=== PATIENT | male | born 1955 | race Caucasian/White ===

== ENCOUNTER 2021-06-26 07:30 | Day surgery (SDC) | payer OTHER ==
--- NOTE | 2021-06-23 13:52 | HP ---
DATE OF SURGERY: 06/26/2021 HISTORY OF PRESENT ILLNESS: The patient is a 65 year-old male who presents for colonoscopy. Last colonoscopy was in 2013 and he had a good exam. He denies any GI signs or symptoms now. Denies family history of colon cancer. PAST MEDICAL HISTORY: Diabetes, hypertension, chronic obstructive pulmonary disease, history of pulmonary embolism. PAST SURGICAL HISTORY: Pilonidal cyst excision. Heart cath. Knee replacement. ALLERGIES: NKDA. MEDICATIONS: Metformin, Farxiga, atorvastatin, Fenofibrate, glyburide, lisinopril. FAMILY HISTORY: Diabetes, heart attack, stroke, coronary artery disease. SOCIAL HISTORY: Negative. REVIEW OF SYSTEMS: CONSTITUTIONAL: Denies fever or chills. CHEST: Denies shortness of breath. CVS: Denies chest pain. ABDOMEN: Denies abdominal pain, nausea, vomiting, diarrhea, constipation or rectal bleeding. PHYSICAL EXAMINATION: GENERAL: No acute distress. CHEST: Nonlabored. No shortness of breath. CVS: Regular rate and rhythm. ABDOMEN: Soft, nontender. IMPRESSION: Screening. PLAN: Colonoscopy with Dr. Shahram Moreland. As dictated by Luciana Schuster NP.
[2021-06-26] MEDS ORDERED: Lactated Ringers 1,000 ML IV SCH (08:00)
[2021-06-26] MEDS ORDERED: DIPRIVAN 200 MG/20 ML IV ONE ×2 (09:38→09:58)
[2021-06-26] MEDS ORDERED: GlucaGen 1 MG ONE (09:54)
[2021-06-26] MEDS ORDERED: ROBINUL ONE (09:54)
[2021-06-26 12:55] VITALS: O2SAT 97
[2021-06-26 12:58] VITALS: BP 118/70; PULSE 69
--- NOTE | 2021-06-26 13:15 | OP ---
SURGERY DATE/TIME: 06/26/2021 0945 PREOPERATIVE DIAGNOSIS: Screening. POSTOPERATIVE DIAGNOSES: 1) Very redundant, normal to hepatic flexure, a very minimal examination for the right side. 2) Prep score good not excellent. PROCEDURE: Colonoscopy limited to hepatic flexure. SURGEON: Shahram Moreland M.D. ANESTHESIA: MAC. COMPLICATIONS: None. CONDITION: Stable. INDICATION: A patient requiring evaluation. DESCRIPTION OF PROCEDURE: Taken to endoscopy. Left lateral decubitus position. Anal digital examination satisfactory. Prostate satisfactory. Anus, rectum, sigmoid very redundant colon. The view was not good. The scope was navigated up to hepatic flexure. Despite care and patience, repositioning, we could not absolutely get the loops out and get over into the right side. On circumferential withdrawal on mucosal lesions were noted. He was sent to x-ray for a barium enema to evaluate the right colon.
--- NOTE | 2021-06-26 13:26 | XRAY ---
Indication: Incomplete colonoscopy. No biopsies performed. Preliminary back office medical assistant abdomen appears nonacute and nonobstructed. A few pelvic phleboliths. Solid organs and osseous structures unremarkable. Barium enema catheter was inserted and balloon tip was insufflated. Barium infusion and air insufflation was performed under fluoroscopic and gravity control. Multiple digital spot and overhead radiograph obtained. There good opacification and distention of the entire colon. There is redundant transverse and descending colon. No presacral mass. Remaining colon is negative for focal stricture, obstruction, annular constricting lesions, or filling defect. Normal appearing appendix. No reflux into the terminal ileum. Impression: Redundant ascending and transverse colon. Remaining double contrast barium enema exam is negative. Approximately 2.3 minutes fluoroscopy used.
== END 2021-06-26 13:10 | disposition home or self-care (01) ==
LOC: SDC 07:30
PROVIDERS: ATTEND Surgery
DX: Z12.11 Encounter for screening for malignant neoplasm of colon (principal); Q43.8 Other specified congenital malformations of intestine; E11.9 Type 2 diabetes mellitus without complications; I10 Essential (primary) hypertension; Z79.899 Other long term (current) drug therapy
CPT/HCPCS: 74280; 82947; J1610; J2704